=== PATIENT | female | born 1970 | race Hispanic/Latino ===

== ENCOUNTER 2018-07-18 07:45 | Observation (INO) | payer OTHER ==
[2018-07-18] MEDS ORDERED: CEFAZOLIN/SWI 1gm 1 GM/10 ML SYR ONE (12:08)
[2018-07-18] MEDS ORDERED: Ringers Lactate 1,000 ML IV ONE ×2 (12:08→12:19)
[2018-07-18] MEDS ORDERED: METHYLENE BLUE 0.5% 10 ML AMP ONE (12:21)
[2018-07-18] MEDS ORDERED: MORPHINE 4 MG/ML SYR IV PRN (13:44)
[2018-07-18] MEDS ORDERED: ONDANSETRON 4 MG/2 ML VIAL IV PRN (13:44)
[2018-07-18] MEDS: MEPERIDINE HCL 25 MG/0.5 ML ONE ×2 (13:54→14:03)
--- NOTE | 2018-07-18 13:55 | P.BOP ---
Preoperative diagnosis: right breast infiltrating ductal carcinoma Postoperative diagnosis: same Primary procedure: right mofified radical mastectomy Litigation Secretary: Odette Nur ([place]) Estimated blood loss: <100cc Specimen: breast and axillary dissection Findings: previous infected cavity within the specimen Anesthesia: General Complications: None Drain(s): BELLA drain Transferred to: Recovery Room Condition: Good
[2018-07-18] MEDS: NA CHLORIDE 0.9% 1,000 ML IV SCH ×2 (14:00→23:00)
[2018-07-18] MEDS ORDERED: MEPERIDINE HCL 25 MG/0.5 ML ONE (14:20)
[2018-07-18] MEDS ORDERED: NA CHLORIDE 0.9% 1,000 ML ONE (15:30)
[2018-07-18] MEDS ORDERED: CEFOXITIN SODIUM 1 GM/VIAL IVPB SCH (18:00)
[2018-07-18] MEDS: CEFOXITIN/SWI 1gm 1 GM/10 ML SYR IVP SCH ×2 (18:00→23:00)
[2018-07-18] MEDS ORDERED: INFLUENZA VACCINE (for 3y+) 0.5 ML DOSE IMVAC ONE (21:00)
[2018-07-19] MEDS: CEFOXITIN/SWI 1gm 1 GM/10 ML SYR IVP SCH ×2 (06:10→12:53)
[2018-07-19] MEDS: HYDROCODONE/APAP 7.5/325 MG TAB PO PRN ×2 (07:51→16:24)
[2018-07-19] MEDS: NA CHLORIDE 0.9% 1,000 ML IV SCH (10:59)
--- NOTE | 2018-07-19 14:30 | P.DS ---
Admission Date: 07/18/18 Discharge Date: 07/19/18 Disposition: ROUTINE DISCHARGE Discharge Condition: GOOD Hospital Course: unremarkable Vital Signs/Physical Exam: Temp Pulse Resp BP Pulse Ox 99.6 F 75 18 115/68 97 07/19/18 08:00 07/19/18 08:00 07/19/18 08:00 07/19/18 08:00 07/19/18 08:00 General: Alert, In no apparent distress, Oriented x3, Cooperative HEENT: PERRLA, EOMI Neck: Supple Respiratory: Normal air movement Cardiovascular: No edema, Normal pulses Gastrointestinal: Soft and benign Musculoskeletal: No erythema, No tenderness, No warmth Integumentary: No rashes, No breakdown, No erythema, No warmth, No cyanosis Neurological: Normal gait, Normal speech Lymphatics: Other (Bella serous) Home Medications: Docusate [Colace Cap] 100 mg PO TID #20 cap 07/19/18 Hydrocodone/Acetaminophen [Vicodin 5-325 mg Tablet] 1 each PO Q4H PRN #30 tablet 07/19/18 Sulfamethoxazole/Trimethoprim [Bactrim Ds Tablet] 1 each PO BID #14 tablet 07/19 New Medications: Docusate [Colace Cap] 100 mg PO TID #20 cap Hydrocodone/Acetaminophen [Vicodin 5-325 mg Tablet] 1 each PO Q4H PRN #30 tablet PRN Reason: Pain Sulfamethoxazole/Trimethoprim [Bactrim Ds Tablet] 1 each PO BID #14 tablet Patient Discharge Instructions: keep dressing intact. REcord BELLA output q24h Diet: Regular Activity: Weight bearing as tolerated Followup: Andres Hudson MD [ACTIVE - CAN ADMIT] - 07/22/18
--- NOTE | 2018-07-20 01:38 | OP ---
Date of Procedure: 07/18/2018 Surgeon: Andres Hudson MD Skull Grinder: Odette Richardson. Preoperative Diagnosis: Right breast infiltrating ductal carcinoma. Postoperative Diagnosis: Right breast infiltrating ductal carcinoma. Procedure: Right modified radical mastectomy. Specimen: Breast and axillary dissection. Finding: Infected cavity on the nipple-areola area that was closed by secondary intention, comes wit hin the specimen. Indications: This is a case of a female who comes to us with an infected abscess over the nipple-are olar complex to see if drainage of that abscess and also biopsy of that area coming back as an infilt rating ductal carcinoma. The packing in that area was done for the last few days. Now, we have to g o and proceed with, as per the person's choice, mastectomy, sentinel lymph node biopsy, possible axil charu dissection, with benefits, alternatives, and risks including, but not limited to infection, blee ding, damage to adjacent structures, anesthesia complications, NC, and even . She also understa nds the chance of seromas, hematomas, flap failure, chronic numbness, chronic pain, chronic lymphedem a, nerve and sensory deficits, motor and sensory deficits, recurrence, NC, and even . She also understands this may not relieve the symptoms, she might need more than one surgical intervention. Clara sol had spatial modalities here, she has an open wound in that area from the previous abscess, and we a re going to do this mastectomy since it will be too many months before that incision heals and this t umor is big enough to require this urgent situation to be addressed. When we did a biopsy, we did a significant amount of biopsy in that area, and still margins are there. It means that this tumor is big enough. After discussing the pros and cons of lumpectomy versus mastectomy, she wants a mastecto my with sentinel lymph node and possible axillary dissection. Description Of Procedure: The patient was brought to the operating room, placed in supine position. Anesthesia was done without complication. A time-out was called. Right breast was prepped and drap ed in a sterile fashion. This morning, she went for a sentinel lymph node marking. At the beginning of the case, also we placed blue dye in the periareolar region and massaged the area for about 15 mi nutes. When we used a gamma probe to look for the signal on the axillary region, we could not find t he signal, even though it was allowed enough time for this to cherry picker operator the signal in the lymph node. It may be that because she has chronic inflammatory process or even the other open wound that the con trast does not want to come into the axillary region, and that triggers the need for us to remove marilee e lymph node. So, that is why we proceed with a modified radical mastectomy. Then, skin incision wa s made to include the nipple-areolar complex with the previous open wound from previous abscess and b iopsy. This was done in a transverse and oblique at the end direction to include the already mention ed. We proceeded to raise the flaps in the avascular plane between subcutaneous and breast tissue stein periorly up to the clavicle, medially down to the sternum, and inferiorly down to the anterior rectus sheath and latissimus dorsi as her lateral border. We elevated the flaps, and the breast tissue and the pectoralis fascia were excised with the specimen moving from medial to lateral. The clavipector al fascia was then incised along the edge of the pectoralis major and minor, and then the surrounding fat and miles tissue was freed. The dissection progressed into the pectoralis major area and then u nder the pectoralis minor muscle as we retracted the muscles medially. The pectoralis neurovascular bundle was identified and preserved. The level-2 miles tissue was also included on the specimen. e axillary vein and artery were protected at all times. The thoracodorsal nerve and long thoracic ne rve were identified and preserved. The specimen of the breast and axillary dissection was sent to [facility] pathologist. The area was irrigated profusely. No bleeding. After that, we proceeded to place 2 BELLA drains over the area, one underneath the flaps and the other one near the axillary region. Secure d in place with 3-0 nylon, exiting through a different insertion point. Then, the skin was closed wi th a combination of 3-0 chromic, 2-0 chromic, and then 4-0 PDS. Sponge count and instrument counts w ere correct. BELLA was connected to bulb suction. Flap looked intact with good capillary refill and wi th no swelling. The patient tolerated the procedure well. The patient was sent to recovery in stable condition after dressing was placed. [facility] CHRISTIANO/ISAAK Voice ID: [id number] Report ID: [id number]
== END 2018-07-19 17:54 | disposition home or self-care (01) ==
LOC: OR 07:45 → 4TH 15:15
PROVIDERS: ADMIT Surgery; ATTEND Surgery
PROC: 07T50ZZ Resection of Right Axillary Lymphatic, Open Approach (ICD-10-PCS; 2018-07-18)
PROC: 0HTT0ZZ Resection of Right Breast, Open Approach (ICD-10-PCS; principal; 2018-07-18 10:00)
DX: C50.011 Malignant neoplasm of nipple and areola, right female breast (principal); C77.3 Secondary and unspecified malignant neoplasm of axilla and upper limb lymph nodes; Z17.0 Estrogen receptor positive status [ER+]
CPT/HCPCS: 88307; G0378; J0690; J2175; J7030

== ENCOUNTER 2019-07-25 15:44 | Emergency (ER) | payer OTHER, SELFPAY ==
[2019-07-25] MEDS ORDERED: IBUPROFEN 200 MG TAB PO ONE (16:20)
[2019-07-25] MEDS ORDERED: DIAZEPAM 5 MG TABLET ONE (16:20)
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
--- NOTE | 2019-07-25 17:28 | RAD REPORT ---
EXAM DESCRIPTION: RAD - C Spine Ap/Lat - 07/25/2019 5:16 pm CLINICAL HISTORY: Neck pain FINDINGS: No fracture or dislocation is seen.
--- NOTE | 2019-07-25 17:29 | RAD REPORT ---
EXAM DESCRIPTION: Beau Leal (2 Views)07/25/2019 5:16 pm CLINICAL HISTORY: Chest pain COMPARISON: None FINDINGS: The lungs are mildly hyperaerated The lungs appear clear of acute infiltrate. The heart is normal size IMPRESSION: No acute abnormalities displayed
--- NOTE | 2019-07-25 17:30 | RAD REPORT ---
EXAM DESCRIPTION: RAD - Humerus Right - 07/25/2019 5:18 pm CLINICAL HISTORY: Right arm pain FINDINGS: No fracture is seen
[2019-07-25 17:38] LABS: Urine Blood NEGATIVE (NEG); Urine Glucose NEGATIVE (NEG); Urine Protein NEGATIVE (NEG); Urine Specific Gravity 1.015 (1.005-1.030)
[2019-07-25 19:06] VITALS: TEMP 98.4; O2SAT 100
[2019-07-25 19:08] VITALS: BP 123/98
== END 2019-07-25 18:07 | disposition home or self-care (01) ==
LOC: ER 15:44
DX: S29.011A Strain of muscle and tendon of front wall of thorax, initial encounter (principal); S29.012A Strain of muscle and tendon of back wall of thorax, initial encounter; S40.811A Abrasion of right upper arm, initial encounter; V49.50XA Passenger injured in collision with unspecified motor vehicles in traffic accident, initial encounter; Z90.11 Acquired absence of right breast and nipple; Z85.3 Personal history of malignant neoplasm of breast
CPT/HCPCS: 71046; 72040; 81003; 81025; 99284